=== PATIENT | male | born 1965 | race Caucasian/White ===

== ENCOUNTER 2019-04-26 19:43 | Emergency (ER) | payer MEDICAID ==
[~2019-04-26] VITALS: Ht 162.6 cm; Wt 93.0 kg
[2019-04-26 20:10] VITALS: BP 156/82
--- NOTE | 2019-04-26 20:12 | NUR ---
TO LOBBY A/W BED, AMBULATORY
--- NOTE | 2019-04-26 20:25 | NUR ---
PT AMBULATORY TO BED WITH
--- NOTE | 2019-04-26 20:30 | NUR ---
53/M BIB , C/O L TESTICULAR SWELLING AND PAIN. DENIES FEVER, N/V/D, CONSTIPATION, DYSURIA. L TESTICLE NOTED WITH MODERATE SWELLING, FIRM TO TOUCH, NO OBVIOUS REDNESS, TENDER TO TOUCH. PT AOX4, GCS 15, SKIN NORMAL WARM AND DRY, RR EVEN AND UNLABORED. HX DM, HTN, CHF, HIGH CHOLESTEROL
[2019-04-26] MEDS ORDERED: IBUPROFEN 800 MG TAB PO ONE (20:40)
[2019-04-26] MEDS ORDERED: AZITHROMYCIN 250 MG TAB PO ONE (22:00)
[2019-04-26] MEDS ORDERED: cefTRIAXone 250 MG in LIDOCAINE MPF 1% - 5 mL VIAL 0.9 ML IM ONE (22:00)
[2019-04-26 22:48] VITALS: BP 161/91
== END 2019-04-26 22:48 | disposition home or self-care (01) ==
LOC: MED 19:43
DX: N45.1 Epididymitis (principal); I50.9 Heart failure, unspecified
CPT/HCPCS: 76870; 81002; 96372; 99284; J0696; J2001; Q0092

== ENCOUNTER 2019-05-11 00:19 | Inpatient (IN) | payer MEDICAID ==
[~2019-05-11] VITALS: Ht 162.6 cm; Wt 96.2 kg
[2019-05-11 00:23] VITALS: BP 123/71
--- NOTE | 2019-05-11 00:31 | NUR ---
PT CAME INTO ER C/O RIGHT NONRADIATING FLANK PAIN AND LETHARGY X1 DAY. NO ACUTE DISTRESS, PAIN LEVEL 1/10 AT THIS TIME. DENIES N/V/D, CONSTIPATION, OR URINARY COMPLAINTS. MEDHX CHF, HTN, HYPERLIPIDEMIA, DIABETES. HOB ELEVATED, BED IN LOWEST POSITION, BEDRAIL UP X1. WAITING FOR ERMD TO EVALUATE. WILL CONTINUE TO MONITOR.
--- NOTE | 2019-05-11 00:31 | NUR ---
PT AMBULATED W/ STEADY GAIT TO BED 11.
[2019-05-11] MEDS ORDERED: NACL 0.9% 1,000 ML IV ONE ×4 (00:58→23:20)
[2019-05-11] MEDS ORDERED: KETOROLAC 30 MG/ML VIAL IVP ONE (01:00)
[2019-05-11 01:11] LABS: BASOPHILS # (AUTO) 0.2 K/uL (0.00-0.22); BASOPHILS % (AUTO) 0.8 % (0.0-2.0); EOSINOPHILS % (AUTO) 0.1 % (0.0-4.0); HEMATOCRIT 35.2 % (36-52); HEMOGLOBIN 12.2 g/dL (12.0-18.0); LYMPHOCYTES # (AUTO) 0.8 K/uL (2.0-11.5); MEAN CORPUSCULAR HEMOGLOBIN 31 pg (27-31); MEAN CORPUSCULAR HGB CONC 35 g/dL (33-37); MEAN CORPUSCULAR VOLUME 90.4 fL (80-94); MONOCYTES # (AUTO) 1.5 K/uL (0.8-1.0); MONOCYTES % (AUTO) 7.3 % (1.7-9.3); NEUTROPHILS # (AUTO) 18.3 K/uL (1.8-7.7); PLATELET COUNT (AUTO) 339 K/uL (140-450); RED BLOOD CELL COUNT(AUTO) 3.89 MIL/uL (4.20-6.10); RED CELL DISTRIBUTION WIDTH 12.4 % (11.6-13.7)
[2019-05-11 01:33] LABS: ALBUMIN 2.8 g/dL (3.4-5.0); ANION GAP 13.6 (8-16); ASPARTATE AMINOTRANSFERASE 15 U/L (15-37); CARBON DIOXIDE 25.3 mmol/L (21-32); CHLORIDE 99 mmol/L (98-107); CREATININE 1.3 mg/dL (0.7-1.3); GFR ARICAN-AMERICAN 75 mL/min (>90); GLUCOSE 176 mg/dL (74-106); LIPASE 77 U/L (73-393); SODIUM SERUM 135 mmol/L (136-145); TOTAL BILIRUBIN 0.8 mg/dL (0.0-1.0); UREA NITROGEN, BLOOD 15 mg/dL (7-18)
[2019-05-11 01:34] LABS: LYMPHOCYTES % (AUTO) 3.8 % (20.5-51.1); WHITE BLOOD COUNT (AUTO) 20.7 K/uL (4.8-10.8)
--- NOTE | 2019-05-11 01:34 | NUR ---
PT UNABLE TO GIVE URINE AT THIS TIME
[2019-05-11 01:39] LABS: POTASSIUM 2.9 mmol/L (3.5-5.1)
--- NOTE | 2019-05-11 02:00 | NUR ---
PT IN BED RESTING, EYES CLOSED. WILL CONTINUE TO MONITOR.
[2019-05-11 02:06] LABS: APPEARANCE,URINE SL CLOUDY (CLEAR); BILIRUBIN,URINE NEGATIVE (NEGATIVE); BLOOD, URINE 2+ (NEGATIVE); COLOR,URINE YELLOW (YELLOW); LEUKOCYTE ESTERASE ,URINE 2+ (NEGATIVE); NITRITE, URINE POSITIVE (NEGATIVE); UGLUCOSE NEGATIVE (NEGATIVE)
[2019-05-11 02:15] LABS: BARBITURATE, URINE NEG. ng/ml (NEG <=200); BENZODIAZEPINE, URINE NEG. ng/mL (NEG <=200); CANNABINOID, URINE NEG. ng/mL (NEG <=50); COCAINE, URINE NEG. ng/mL (NEG <=300); OPIATE, URINE NEG. ng/mL (NEG <=2000); PHENCYCLIDINE SCREEN,URINE NEG. ng/mL (NEG <=25)
[2019-05-11 02:23] LABS: RBC,URINE TOO NUMEROUS TO COUN /HPF (0-5); WBC,URINE TOO MANY TO COUNT /HPF (0-5)
[2019-05-11] MEDS ORDERED: cefTRIAXone 1,000 MG VIAL ONE (02:49)
--- NOTE | 2019-05-11 02:53 | NUR ---
PT CONTINUES TO FEEL TIRED. BP 97/44 HR 71. SECOND L OF NS STARTED. DR NAILS IS AWARE. WILL CONTINUE TO MONITOR.
--- NOTE | 2019-05-11 03:28 | NUR ---
PT RESTING IN BED. BP INCREASED TO 101/47, HR 71.
[2019-05-11] MEDS ORDERED: KCL 20 MEQ/WATER INJ PREMIX 100 ML IV ONE (03:30)
[2019-05-11] MEDS ORDERED: NACL 0.9% 1,000 ML IV SCH (03:44)
[2019-05-11] MEDS ORDERED: DOCUSATE SODIUM 100 MG GELCAP PO PRN (03:45)
[2019-05-11] MEDS ORDERED: MORPHINE SULFATE 2 MG/ML SYR IVP PRN (03:45)
[2019-05-11] MEDS ORDERED: KETOROLAC 15 MG/ML VIAL IVP PRN (03:45)
[2019-05-11] MEDS ORDERED: HYDROcodone/APAP 5/325 MG 1 TAB TAB PO PRN (03:45)
[2019-05-11] MEDS ORDERED: POTASSIUM CHLORIDE 10 MEQ TABER PO ONE (03:50)
[2019-05-11] MEDS ORDERED: DEXTROSE 50% 50 ML SYR IVP PRN (03:50)
[2019-05-11] MEDS ORDERED: KCL 20 MEQ/WATER INJ PREMIX 200 ML IV ONE (03:50)
[2019-05-11] MEDS ORDERED: LISI-420 PO (03:53)
[2019-05-11] MEDS ORDERED: TAMS0.4C97 PO (03:53)
[2019-05-11] MEDS ORDERED: ORE25 PO (03:54)
[2019-05-11] MEDS ORDERED: METF1000 PO (03:55)
[2019-05-11] MEDS ORDERED: ISOS20TA13 PO (03:56)
[2019-05-11] MEDS ORDERED: FURO-572 PO (03:57)
[2019-05-11] MEDS ORDERED: CARV25TA PO (03:58)
[2019-05-11] MEDS ORDERED: ASPI-1718 PO (03:59)
[2019-05-11] MEDS ORDERED: GLIM2TAB PO (03:59)
[2019-05-11] MEDS ORDERED: HYDR100T79 PO (04:00)
[2019-05-11] MEDS ORDERED: AMLO10TA PO (04:01)
[2019-05-11] MEDS ORDERED: CLON0.1T42 PO (04:02)
[2019-05-11 04:04] LABS: PROTHROMBIN TIME 10.2 secs (10.8-13.4)
[2019-05-11 04:16] LABS: CHOL/HDL RATIO 5.6 (1-4.5); FREE T4 (FREE THYROXINE) 1.34 ng/dL (0.76-1.46); MAGNESIUM 1.5 mg/dL (1.8-2.4); PHOSPHORUS 2.7 mg/dL (2.5-4.9); THYROID STIMULATING HORMONE 0.28 uIU/mL (0.34-3.74)
--- NOTE | 2019-05-11 04:31 | NUR ---
REPORT GIVEN AND CARE TRANSFERRED TO ZACK RN ROOM 124B. TRANSFER VIA RNEY. VSS.
[2019-05-11 05:00] VITALS: BP 117/71
--- NOTE | 2019-05-11 05:00 | NUR ---
RECEIVED PT FROM ER VIA DINAH PT AAOX4 AMBULATORY ON ARTILLERY MAINTENANCE SUPERVISOR SR HR 71, IV ON RT AC GAUGE # 20 INFUSING WELL K RIDDER, , SKIN IS INTACT, MRSA NARES SWAB PROTOCOL TAKEN AND SENT TO LAB, PT IS ORIENT ED TO THE FLOOR CALL LIGHT WITHIN REACH
[2019-05-11] MEDS: NACL 0.9% 1,000 ML IV SCH ×3 (05:50→22:06)
[2019-05-11] MEDS: BLOOD GLUCOSE MONITORING 1 DEV DEV FS SCH ×4 (05:59→21:48)
[2019-05-11] MEDS: PIPER/TAZO 3.375GM/D5W PREMIX 50 ML IV SCH ×4 (06:30→23:28)
--- NOTE | 2019-05-11 06:30 | NUR ---
BLOOD SUGAR TEST 161 COVERAGE WITH 2 UNITS SUBQ HUMALOG FOLLOW PROTOCOL
[2019-05-11] MEDS ORDERED: PIPERACILLIN/TAZOBACTAM 3.375 GM VIAL IV ONE (06:33)
--- NOTE | 2019-05-11 06:36 | NUR ---
PT WILL BE ENDORSED TO DAY SHIFT NURSE FOR CONTINUITY OF CARE .
--- NOTE | 2019-05-11 07:20 | NUR ---
RECEIVED PT FROM LIFE CYCLE ASSESSMENT ANALYST NURSE, PT IS AWAKE AND LYING ON THE BED WITH SIDE RAILS UP AND CALL LIGHT WITHIN REACH,IV LINE ON THE RT AC G. 20 WITH NS INFUSING AT 100ML/HR, DENIES PAIN AND NO SIGN OF DISTRESS NOTED. WILL MONITOR PT.
[2019-05-11 08:00] VITALS: BP 133/78
[2019-05-11] MEDS ORDERED: LISINOPRIL 20 MG TAB PO SCH (08:00)
[2019-05-11] MEDS ORDERED: TAMSULOSIN HCL 0.4 MG PO SCH (08:00)
[2019-05-11] MEDS ORDERED: ASPIRIN 81 MG TAB.CHEW PO SCH (08:00)
[2019-05-11] MEDS ORDERED: MAG SULF 2000 MG/WATER PREMIX 100 ML IV SCH (08:30)
[2019-05-11] MEDS: ACETAMINOPHEN 325 MG TAB PO PRN ×2 (08:49→17:59)
[2019-05-11] MEDS: GLIMEPIRIDE 2 MG TAB PO SCH ×2 (09:00→20:10)
[2019-05-11] MEDS ORDERED: metFORMIN 500 MG TAB PO SCH (09:00)
[2019-05-11] MEDS ORDERED: CARVEDILOL 12.5 MG TAB PO SCH (09:00)
[2019-05-11] MEDS ORDERED: KETOROLAC 15 MG/ML VIAL IVP SCH ×2 (09:00→18:20)
[2019-05-11] MEDS: NICOTINE TRANSD SYS 14 MG/24 HR PATCH TD SCH (09:00)
[2019-05-11] MEDS: ONDANSETRON 4 MG/2 ML VIAL IM/IVP PRN ×2 (09:08→18:33)
[2019-05-11] MEDS: cloNIDine 0.1 MG TAB PO SCH ×2 (09:09→20:10)
--- NOTE | 2019-05-11 09:09 | NUR ---
PT WERE GIVEN BP MEDS NOW PER MDR. FERGUSON, BP IS 186/90, PULSE IS 100 O2 SATURATION IS 96%, ZOFRAN WAS GIVEN WELL VIA IV MPUSH FOR THE NAUSEA. WILL MONITOR PT.
--- NOTE | 2019-05-11 09:22 | NUR ---
PATIENT HAS BEEN SCREENED AND CATEGORIZED HIGH NUTRITION RISK. PATIENT WILL BE SEEN WITHIN 1-2 DAYS OF ADMISSION. 05/11/19-05/12/[address]
--- NOTE | 2019-05-11 09:33 | NUR ---
MAGNESIUM SULFATE 2GM WAS STARTED TO PT NOW. PT RESTING. WILL MONITOR PT.
--- NOTE | 2019-05-11 11:40 | NUR ---
PT IS OFF THE UNIT NOW FOR A CT OS ABDOMEN AND PELVIS, TEMPERATURE IS 99.1.
[2019-05-11 12:00] VITALS: BP 108/63
--- NOTE | 2019-05-11 12:42 | NUR ---
PT WAS GIVEN IV ZOSYN IVPB NOW.
--- NOTE | 2019-05-11 12:43 | NUR ---
BLOOD GLUCOSE CHECK DONE AN RESULT MS124, NO INSULIN COVERAGE, VITAL SIGNS TAKEN AND BP IS 108/63, PULSE IS 79, O2 SATURATION IS 98%, TEMPERATURE IS 98.3 [address]TE. NO SIGN OF DISTRESS NOTED AND WILL MONITOR PT.
--- NOTE | 2019-05-11 15:19 | NUR ---
05/11/19 RD INITIAL ASSESSMENT COMPLETED PLEASE REFER TO NUTRITION ASSESSMENT UNDER CARE ACTIVITY FOR ESTIMATED NUTRITIONAL NEEDS. 1.CONTINUE CCHO 60 GR, CARDIAC DIET TOLERATED 2.RD TO FOLLOWU UP WITH DIABETES EDUCATION 3. RD TO FOLLOW-UP 2-3 DAYS, HIGH RISK ABBI JIMENEZ, RD
[2019-05-11 16:00] VITALS: BP 102/64
--- NOTE | 2019-05-11 16:30 | NUR ---
ECHO IS BEING DONE TO PT NOW.
[2019-05-11] MEDS: INSULIN LISPRO SLIDING SCALE 100 UNITS/ML VIAL SUBQ PRN ×2 (17:17→20:26)
--- NOTE | 2019-05-11 17:18 | NUR ---
PT IS AWAKE AND MEDICATIONS VIA IVPB AND 4 UNITS INSULIN WERE GIVEN TO PT NOW FOR A BLOOD GLUCOSE OF 212. WILL MONITOR PT.
--- NOTE | 2019-05-11 18:02 | NUR ---
PT IS SHIVERING AGAIN THERESA TEMPERATURE IS 100.4, TYLENOL WAS GIVEN. WILL ,MONITOR PT.
[2019-05-11 18:27] LABS: BASOPHILS % (AUTO) 0.2 % (0.0-2.0); HEMATOCRIT 39.8 % (36-52); HEMOGLOBIN 13.6 g/dL (12.0-18.0); LYMPHOCYTES # (AUTO) 0.6 K/uL (2.0-11.5); LYMPHOCYTES % (AUTO) 3.6 % (20.5-51.1); MEAN CORPUSCULAR HEMOGLOBIN 31 pg (27-31); MEAN CORPUSCULAR HGB CONC 34 g/dL (33-37); MEAN CORPUSCULAR VOLUME 92.1 fL (80-94); MONOCYTES # (AUTO) 0.2 K/uL (0.8-1.0); MONOCYTES % (AUTO) 1.1 % (1.7-9.3); NEUTROPHILS # (AUTO) 16.4 K/uL (1.8-7.7); NEUTROPHILS % (AUTO) 95.1 % (42.2-75.2); PLATELET COUNT (AUTO) 349 K/uL (140-450); RED BLOOD CELL COUNT(AUTO) 4.32 MIL/uL (4.20-6.10); RED CELL DISTRIBUTION WIDTH 12.7 % (11.6-13.7); WHITE BLOOD COUNT (AUTO) 17.2 K/uL (4.8-10.8)
[2019-05-11] MEDS ORDERED: KETOROLAC 60 MG/2 ML VIAL IM ONE (18:29)
--- NOTE | 2019-05-11 18:29 | NUR ---
PT WAS GIVEN TORADOL 30MG VIA IV PUSH.
--- NOTE | 2019-05-11 18:33 | NUR ---
PT IS NAUSEATED AND VOMITING, ZOFRAN WAS GIVEN VIA IV PUSH.
[2019-05-11 18:43] LABS: ANION GAP 14.3 (8-16); CARBON DIOXIDE 27.2 mmol/L (21-32); CREATININE 1.6 mg/dL (0.7-1.3); POTASSIUM 4.5 mmol/L (3.5-5.1)
--- NOTE | 2019-05-11 19:15 | NUR ---
ENDORSED PT TO FUNDRAISING MANAGER NURSE FOR CONTINUITY OF CARE, PT'S TEMPERATURE IS 99 DEGREES NOW.
--- NOTE | 2019-05-11 19:16 | NUR ---
RECEIVED REPORT FROM AM NURSE. PT SITTING UP IN BED, AWAKE, ALERT AND ORIENTED. PT AT BEDSIDE. PT CURRENTLY EATING. PT RIGHT A/C 20 G INTACT AND INFUSING WELL. NO C/O DISCOMFORT. PT ON 2 L 02 VIA N.C. BREATHING EQUAL AND UNLABORED. SAFETY MEASURES IN PLACE. CALL LIGHT WITHIN REACH. WILL CONTINUE TO MONITOR.
--- NOTE | 2019-05-11 19:40 | NUR ---
PT AMBULATING IN HALLWAYS WITH , STEADY GAIT.
--- NOTE | 2019-05-11 20:00 | NUR ---
VITALS TAKEN. PT CURRENT TEMPERATURE IS 97.3
[2019-05-11 20:02] VITALS: BP 121/64
[2019-05-11] MEDS: TAMSULOSIN 0.4 MG CAP PO SCH (20:09)
--- NOTE | 2019-05-11 21:40 | NUR ---
BP REASSESS AFTER BP MEDICATION. BP 91/48 AT THIS TIME. RESIDENT MD MADE AWARE. INSTRUCTED TO REASSESS BP.
--- NOTE | 2019-05-11 23:24 | NUR ---
VITALS TAKEN. PT BP 94/51. RESIDENT MD MADE AWARE. NO NEW ORDERS GIVEN.
[2019-05-12] MEDS ORDERED: KETOROLAC 15 MG/ML VIAL IVP SCH
[2019-05-12 00:03] VITALS: BP 94/51
[2019-05-12] MEDS: KETOROLAC 15 MG/ML VIAL IVP SCH ×2 (00:26→05:05)
--- NOTE | 2019-05-12 01:40 | NUR ---
ROUNDED ON PT. PT SLEEPING IN BED. BREATHING UNLABORED. CALL LIGHT WITHIN REACH. WILL CONTINUE TO MONITOR.
[2019-05-12] MEDS: ONDANSETRON 4 MG/2 ML VIAL IM/IVP PRN (02:30)
--- NOTE | 2019-05-12 02:30 | NUR ---
GAVE ZOFRAN FOR REPORTED NAUSEA.
--- NOTE | 2019-05-12 04:05 | NUR ---
ROUNDED ON PT. PT SLEEPING, NO VISIBLE SIGNS OF DISTRESS. CALL LIGHT WITHIN REACH.
[2019-05-12] MEDS: NACL 0.9% 1,000 ML IV SCH ×3 (04:13→18:31)
[2019-05-12 04:15] VITALS: BP 117/68
[2019-05-12] MEDS: PIPER/TAZO 3.375GM/D5W PREMIX 50 ML IV SCH ×3 (05:05→17:18)
[2019-05-12] MEDS: INSULIN LISPRO SLIDING SCALE 100 UNITS/ML VIAL SUBQ PRN ×2 (05:09→21:37)
[2019-05-12 06:01] LABS: ANION GAP 11.4 (8-16); CREATININE 1.2 mg/dL (0.7-1.3); POTASSIUM 3.4 mmol/L (3.5-5.1)
[2019-05-12 06:12] LABS: PHOSPHORUS 2.4 mg/dL (2.5-4.9)
[2019-05-12] MEDS: BLOOD GLUCOSE MONITORING 1 DEV DEV FS SCH ×4 (06:33→21:12)
--- NOTE | 2019-05-12 07:20 | NUR ---
ENDORSED PT TO AM NURSE. PT IN STABLE CONDITION AT THIS TIME.
--- NOTE | 2019-05-12 07:24 | NUR ---
RECEIVED BEDSIDE REPORT FROM SENIOR LABORATORY TECHNICIAN NURSE. PT LAYING IN BED, AAOX4. PT HAS RIGHT A/C 20G INTACT AND INFUSING WELL. NO C/O DISCOMFORT. PT ON RA. BREATHING PATTERN IS EQUAL AND UNLABORED. SAFETY MEASURES IN PLACE. DISCUSSED PLAN OF CARE WITH PT AND PT VERBALIZED UNDERSTANDING. CALL LIGHT WITHIN REACH. BED IN LOW POSITION. WILL ROUND FREQUENTLY ON PT.
[2019-05-12 07:41] LABS: BASOPHILS % (AUTO) 0.1 % (0.0-2.0); EOSINOPHILS % (AUTO) 0.3 % (0.0-4.0); HEMOGLOBIN 11.5 g/dL (12.0-18.0); LYMPHOCYTES # (AUTO) 0.5 K/uL (2.0-11.5); LYMPHOCYTES % (AUTO) 3.3 % (20.5-51.1); MEAN CORPUSCULAR HEMOGLOBIN 32 pg (27-31); MEAN CORPUSCULAR HGB CONC 35 g/dL (33-37); MEAN CORPUSCULAR VOLUME 91.9 fL (80-94); MONOCYTES # (AUTO) 0.7 K/uL (0.8-1.0); MONOCYTES % (AUTO) 4.8 % (1.7-9.3); NEUTROPHILS # (AUTO) 12.6 K/uL (1.8-7.7); NEUTROPHILS % (AUTO) 91.5 % (42.2-75.2); PLATELET COUNT (AUTO) 262 K/uL (140-450); RED CELL DISTRIBUTION WIDTH 12.7 % (11.6-13.7); WHITE BLOOD COUNT (AUTO) 13.7 K/uL (4.8-10.8)
[2019-05-12 08:00] VITALS: BP 114/63
[2019-05-12] MEDS: HYDROCHLOROTHIAZIDE 25 MG TAB PO SCH (08:00)
[2019-05-12] MEDS ORDERED: POTASSIUM CHLORIDE 10 MEQ TABER PO SCH (08:00)
[2019-05-12] MEDS: metFORMIN 500 MG TAB PO SCH ×2 (08:28→17:18)
[2019-05-12] MEDS: SODIUM PHOS / POTASSIUM PHOS 1 PKT PDR PO SCH (08:29)
[2019-05-12] MEDS: NICOTINE TRANSD SYS 14 MG/24 HR PATCH TD SCH (08:29)
[2019-05-12] MEDS: GLIMEPIRIDE 2 MG TAB PO SCH ×2 (09:00→21:11)
[2019-05-12] MEDS ORDERED: amLODIPine 5 MG TAB PO SCH (09:00)
--- NOTE | 2019-05-12 09:10 | NUR ---
ADMINISTERED MORNING MEDS TO PT. PT TOLERATED THEM WELL. ALL BP MEDS WERE HELD PER MD ORDERS DUE TO DECREASED BP. WILL MONITOR BP FREQUENTLY AND NOTIFY MD OF CHANGES. PT HAVING BREAKFAST AT THIS TIME. WILL CONTINUE TO ROUND FREQUENTLY ON PT. BED IN LOW POSITION, CALL LIGHT WITHIN REACH.
--- NOTE | 2019-05-12 11:24 | NUR ---
PT SLEEPING IN BED. NO SIGNS OF PAIN OR DISTRESS NOTED. WILL CONTINUE TO ROUND FREQUENTLY ON PT.
--- NOTE | 2019-05-12 11:57 | NUR ---
PER MD ORDERS, NO INSULIN COVERAGE TO BE GIVEN TO PT FOR 152 BS. WILL REASSESS BS AT 1600.
[2019-05-12 12:00] VITALS: BP 133/75
[2019-05-12] MEDS: KETOROLAC 15 MG/ML VIAL IVP PRN (12:44)
--- NOTE | 2019-05-12 13:14 | NUR ---
PT HAVING LATE LUNCH MEAL. PT HAD 100.2 FEVER. TORADOL WAS GIVEN FOR RELIEF OF CHILLS AND TO REDUCE FEVER. PT STATES MINOR HEADACHE. WILL REASSESS PT FOR MED EFFECTIVENESS. BED IN LOW POSITION, CALL LIGHT WITHIN REACH.
--- NOTE | 2019-05-12 15:24 | NUR ---
PT SLEEPING IN BED. PT EXPERIENCING FEVER. GAVE TYLENOL FOR RELIEF. WILL REASSESS FOR MED EFFECTIVENESS.
[2019-05-12 16:00] VITALS: BP 136/76
[2019-05-12] MEDS: ACETAMINOPHEN 325 MG TAB PO PRN (17:18)
--- NOTE | 2019-05-12 17:45 | NUR ---
PT RESTING IN BE WITH AT BEDSIDE. PT FEVER IS 99.5. WILL CONTINUE TO MONITOR PT.
--- NOTE | 2019-05-12 19:13 | NUR ---
ENDORSED PT TO SUPERVISOR FERTILIZER PROCESSING FOR CONTINUITY OF CARE. PT IN STABLE CONDITION AT THIS TIME.
--- NOTE | 2019-05-12 19:14 | NUR ---
RECEIVED REPORT FROM AM NURSE. PT AWAKE, ALERT AND ORIENTED. ABLE TO VERBALIZE NEEDS. PT RIGHT 20G INTACT AND INFUSING WELL. AT BEDSIDE. PT ON ROOM AIR, BREATHING EQUAL AND UNLABORED. SAFETY MEASURES IN PLACE. CALL LIGHT WITHIN REACH. PT UP AND AMBULATED TO THE BATHROOM, STEADY GAIT. WILL CONTINUE TO MONITOR.
[2019-05-12 20:00] VITALS: BP 136/74
--- NOTE | 2019-05-12 20:10 | NUR ---
PT USED CALL LIGHT TO SAY THAT HIS "IV IS LEAKING" UPON INSPECTION IV CANNULA APPEARS TO BE COMING OUT OF PT ARM. PT ASKED IF HE WAS ABLE TO SHOWER. PER DR BURNS, OKAY TO SHOWER. PT IV D/C AT THIS TIME, CANNULA INTACT. PT ASSISTED TO SHOWER BY .
[2019-05-12] MEDS: TAMSULOSIN 0.4 MG CAP PO SCH (21:11)
--- NOTE | 2019-05-12 21:11 | NUR ---
MEDICATIONS GIVEN TO PT. PT TOLERATED WELL. NEW IV STARTED ON LEFT FOREARM 20G FOR VASCULAR ACCESS.
[2019-05-13 00:05] VITALS: BP 98/62
[2019-05-13] MEDS: NACL 0.9% 1,000 ML IV SCH ×4 (00:15→23:07)
[2019-05-13] MEDS: KETOROLAC 15 MG/ML VIAL IVP PRN (00:15)
[2019-05-13] MEDS: PIPER/TAZO 3.375GM/D5W PREMIX 50 ML IV SCH ×3 (00:15→11:39)
--- NOTE | 2019-05-13 00:15 | NUR ---
VITALS TAKEN. PT STATED THAT HE IS "COLD" PT BROUGHT A BLANKET. PT ALSO ADMINISTERED TORADOL PER REQUEST.
[2019-05-13 04:01] VITALS: BP 169/81
[2019-05-13] MEDS: ACETAMINOPHEN 325 MG TAB PO PRN ×2 (04:01→12:21)
--- NOTE | 2019-05-13 04:01 | NUR ---
TYLENOL GIVEN FOR TEMP 101.2. PT BP 169/89 AT THIS TIME. RESIDENT AWARE. WILL REASSESS BP AND TEMPERATURE.
--- NOTE | 2019-05-13 04:40 | NUR ---
BP REASSESSED, 151/81 AT THIS TIME. RESIDENT MD MADE AWARE.
[2019-05-13 06:43] LABS: ANION GAP 15.3 (8-16); CARBON DIOXIDE 22.9 mmol/L (21-32); POTASSIUM 3.2 mmol/L (3.5-5.1)
[2019-05-13] MEDS: BLOOD GLUCOSE MONITORING 1 DEV DEV FS SCH ×4 (06:49→20:59)
[2019-05-13 06:50] LABS: MAGNESIUM 1.7 mg/dL (1.8-2.4); PHOSPHORUS 1.7 mg/dL (2.5-4.9)
[2019-05-13 07:25] LABS: BASOPHILS % (AUTO) 0.3 % (0.0-2.0); EOSINOPHILS % (AUTO) 0.4 % (0.0-4.0); HEMATOCRIT 34.4 % (36-52); HEMOGLOBIN 11.8 g/dL (12.0-18.0); LYMPHOCYTES # (AUTO) 0.6 K/uL (2.0-11.5); LYMPHOCYTES % (AUTO) 6.1 % (20.5-51.1); MEAN CORPUSCULAR HEMOGLOBIN 31 pg (27-31); MEAN CORPUSCULAR HGB CONC 34 g/dL (33-37); MEAN CORPUSCULAR VOLUME 91.2 fL (80-94); MONOCYTES # (AUTO) 0.9 K/uL (0.8-1.0); NEUTROPHILS # (AUTO) 8.4 K/uL (1.8-7.7); NEUTROPHILS % (AUTO) 84.2 % (42.2-75.2); PLATELET COUNT (AUTO) 253 K/uL (140-450); RED BLOOD CELL COUNT(AUTO) 3.77 MIL/uL (4.20-6.10); RED CELL DISTRIBUTION WIDTH 12.9 % (11.6-13.7)
--- NOTE | 2019-05-13 07:30 | NUR ---
RECEIVED BEDSIDE REPORT FROM NIGHT NURSE. PT AMBULATING TO BATHROOM WITH STEADY GAIT, AOX4. PT HAS NS AT 140ML/HR IV TO LEFT FOREARM THAT IS ASYMPTOMATIC AND PATENT. ALL SAFETY MEASURES IN PLACE WITH CALL LIGHT WITHIN REACH. PT BREATHING UNLABORED AND WITHOUT DISTRESS, PT HAS NO REQUESTS AT THIS TIME.
[2019-05-13 08:00] VITALS: BP 140/66
[2019-05-13] MEDS: GLIMEPIRIDE 2 MG TAB PO SCH ×2 (08:20→20:52)
[2019-05-13] MEDS: metFORMIN 500 MG TAB PO SCH ×2 (08:20→16:55)
[2019-05-13] MEDS: HYDROCHLOROTHIAZIDE 25 MG TAB PO SCH (08:20)
[2019-05-13] MEDS: SODIUM PHOS / POTASSIUM PHOS 1 PKT PDR PO SCH (08:21)
[2019-05-13] MEDS: NICOTINE TRANSD SYS 14 MG/24 HR PATCH TD SCH (08:33)
--- NOTE | 2019-05-13 10:49 | NUR ---
PT STANDING AT SINK WITH STEADY GAIT NO PROBLEMS AMBULATING. NO REQUESTS AND NO OBVIOUS SIGNS OF DISTRESS.
--- NOTE | 2019-05-13 11:36 | NUR ---
PT BG 89 PT WALKING AROUND FINE WITH STEADY GAIT NO DISTRESS.
--- NOTE | 2019-05-13 11:43 | NUR ---
INFORMED DR MARAVILLA OF PATIENT POTASSIUM AND MAGNESIUM LEVELS DECREASING ON TODAY'S LAB READING.
[2019-05-13 12:00] VITALS: BP 150/81
--- NOTE | 2019-05-13 12:21 | NUR ---
GAVE TYLENOL PRN FOR FEVER 101.4
--- NOTE | 2019-05-13 12:36 | NUR ---
ADMINISTERED MEDICATIONS, PT HAS NO OTHER REQUESTS AND NO DISTRESS.
--- NOTE | 2019-05-13 12:54 | NUR ---
PT FEVER REDUCED TO 100.1 STATES NO PAIN OR DISCOMFORT.
[2019-05-13] MEDS ORDERED: POTASSIUM PHOSPHATE 15 MM in NACL 0.9% 250 ML IV SCH (13:00)
--- NOTE | 2019-05-13 13:38 | NUR ---
PT DAUGHTER AT BEDSIDE, STATING PT SAYS HE IS FEELING WARM. TEMPERATURE 100.1, BROUGHT PATIENT ICE WATER AND TOWEL AND HELPED WITH COOLING MEASURES FOR PUTTING ON HEAD AND UNDER ARMS. NO SIGNS OF DISTRESS BREATHING UNLABORED.
--- NOTE | 2019-05-13 14:08 | NUR ---
PT TEMPERATURE 99.9 TRENDING DOWN.
--- NOTE | 2019-05-13 14:15 | NUR ---
PT COMPLAINING OF BURNING PAIN IN STOMACH, INFORMED DR MARAVILLA WHO WENT AND SPOKE TO PT. NO FURTHER ORDERS AT THIS TIME.
[2019-05-13] MEDS ORDERED: MAGNESIUM OXIDE 400 MG TAB PO SCH (15:00)
[2019-05-13] MEDS ORDERED: KETOROLAC 15 MG/ML VIAL IVP SCH (15:12)
--- NOTE | 2019-05-13 15:20 | NUR ---
PT DAUGHTER REPORTED TO ME THAT PATIENT IS TELLING HER THAT HE HAD 7 BOWEL MOVEMENTS LOOSE TODAY. SPOKE TO DR MARAVILLA WHO SPOKE TO HIM WELL AND INFORMED ME HE WILL ORDER A STOOL SAMPLE TO BE COLLECTED.
--- NOTE | 2019-05-13 15:36 | NUR ---
WAS CONTACTED BY LAB REGARDING PT POSITIVE RESULTS URINE FOR E. COLI AND MDRO. DR. MARAVILLA WAS NEXT TO ME DURING PHONE CALL AND TOLD HIM DIRECTLY AT THAT SAME TIME. HE INFORMED ME HE WAS AWARE.
--- NOTE | 2019-05-13 15:52 | NUR ---
SPOKE TO DR MARAVILLA REGARDING PT FEVER 101.0 HE INFORMED ME TO CONTINUE WITH THE SCHEDULED TYLENOL Q6H AND THE TORADOL WELL.
[2019-05-13 16:00] VITALS: BP 148/79
--- NOTE | 2019-05-13 16:28 | NUR ---
FINGERSTICK GLUCOSE 62 PT IS EATING HIS LUNCH NOW. GAVE PT APPLE JUICE WILL CONTINUE TO MONITOR. AND REASSESS BLOOD GLUCOSE. PT IS AT BEDSIDE. PT IS SITTING UP IN CHAIR EATING.
--- NOTE | 2019-05-13 17:03 | NUR ---
PT SITTING UP IN CHAIR AT BEDSIDE STATES THAT HE FEELS MUCH BETTER AND HAS NO PAIN. PT AT BEDSIDE. PT HAS NO OBVIOUS DISTRESS BREATHING UNLABORED.
--- NOTE | 2019-05-13 17:30 | NUR ---
PT INFORMED ME HE HAD A BOWEL MOVEMENT. SENT SAMPLE WITH C DIFF PAPER SIGNED BY CHARGE TO LAB. PT RESTING BY BED WITH PRESENT WITH NO COMPLAINTS STATING HE FEELS BETTER AND DOES NOT FEEL LIKE HE HAS A FEVER OR CHILLS AND IS COMFORTABLE.
--- NOTE | 2019-05-13 18:26 | NUR ---
PT AT BEDSIDE PT IN BATHROOM. BROUGHT SOME ICE FOR PT THEY HAVE NO OTHER REQUESTS.
--- NOTE | 2019-05-13 18:39 | NUR ---
PT TEMPERATURE 98.1 CONTINUES TO TREND DOWN AND IS WNL
--- NOTE | 2019-05-13 19:14 | NUR ---
RECIEVED PT. AWAKE ON BED, NID , WITH EPISODE OF 4X LOOSE STOOL , AND ONE EPISODE OF FEVER , IV SITE INTACT AND PATENT, AMBULATORY , PLAN OF CARE DISCUSSED AND VERBALIZE OF UNDERSTANDING. RELATIVE AT BEDSIDE , CALL LIGHT WITHIN REACH , BED IN LOW POSITION , SIDERAILS UP X2 ,WILL CONTINUE TO MONITOR.
--- NOTE | 2019-05-13 19:14 | NUR ---
GAVE BEDSIDE REPORT PT IN STABLE CONDITION.
[2019-05-13 20:00] VITALS: BP 112/65
[2019-05-13] MEDS ORDERED: cefTRIAXone 1,000 MG VIAL ONE (20:29)
[2019-05-13] MEDS: TAMSULOSIN 0.4 MG CAP PO SCH (20:40)
--- NOTE | 2019-05-13 22:00 | NUR ---
PUT ON CONTACT PRECAUTION ,POSITIVE STOOL C .DIFF. ,PROPER HANDWASHING RE EMPHASIZED , CALL LIGHT WITHIN REACH. WILL CONTINUE TO MONITOR.
[2019-05-13] MEDS: metroNIDAZOLE 500 MG/NS PREMIX 100 ML IV SCH (22:13)
[2019-05-14] VITALS: BP 113/65
--- NOTE | 2019-05-14 | NUR ---
MADE ROUNDS , V/S WNL ,NID , VOIDED FREELY , PASSED OUT SMALL LIQ, STOOL IN SMALL AMOUNT , WILL CONTINUE TO MONITOR.,CALL LIGHT WITHIN REACH .
[2019-05-14] MEDS: ONDANSETRON 4 MG/2 ML VIAL IM/IVP PRN ×2 (00:27→21:04)
[2019-05-14] MEDS: KETOROLAC 15 MG/ML VIAL IVP SCH ×4 (00:28→17:31)
--- NOTE | 2019-05-14 02:00 | NUR ---
MADE ROUNDS , SLEEPING ,NID ,CALL LIGHT WITHIN REACH.
[2019-05-14] MEDS: NACL 0.9% 1,000 ML IV SCH ×3 (03:17→20:34)
[2019-05-14 04:00] VITALS: BP 114/69
--- NOTE | 2019-05-14 04:00 | NUR ---
MADE ROUNDS , V/S WNL , VOIDED FREELY , PASSED OUT SMALL AMOUNT OF LIQUID STOOL , ENCOURAGED OFI , CALL LIGHT WITHIN REACH , WILL CONTINUE TO MONITOR.
[2019-05-14] MEDS: metroNIDAZOLE 500 MG/NS PREMIX 100 ML IV SCH ×3 (05:20→20:59)
--- NOTE | 2019-05-14 06:00 | NUR ---
MADE ROUNDS , NID ,SLEEPING ,CALL LIGHT WITHIN REACH.
[2019-05-14] MEDS: BLOOD GLUCOSE MONITORING 1 DEV DEV FS SCH ×4 (06:42→21:21)
[2019-05-14 06:54] LABS: ANION GAP 15.1 (8-16); CARBON DIOXIDE 23.2 mmol/L (21-32); CREATININE 0.7 mg/dL (0.7-1.3); POTASSIUM 3.3 mmol/L (3.5-5.1)
[2019-05-14 07:04] LABS: MAGNESIUM 1.6 mg/dL (1.8-2.4); PHOSPHORUS 2.6 mg/dL (2.5-4.9)
--- NOTE | 2019-05-14 07:20 | NUR ---
RECEIVED BEDSIDE REPORT FROM NIGHT NURSE. ASKED IF SHE HAD ADMINISTERED KETOROLAC [id number] THEY HAVE NOT BEEN ADMINISTERED ACCORDING TO EMAR AND SHE INFORMED ME SHE HAD WELL ALL THE NIGHT INTERVENTIONS COMPLETED. PATIENT IS ON C DIFF CONTACT PRECAUTIONS ACCORDING TO NIGHT NURSE BECAUSE C DIFF STOOL SAMPLE CAME BACK POSITIVE. PT IS AOX4. PT HAS LEFT FOREARM IV THAT IS INFUSING NORMAL SALINE AT 140ML/HR. PT DENIES CHILLS OR DISCOMFORT OF ANY KIND. ALL SAFETY MEASURES IN PLACE AND CALL LIGHT WITHIN REACH.
--- NOTE | 2019-05-14 07:20 | NUR ---
PT VOIDED FREELY ,NID ,PASSED OUT SMALL AMOUNT OF YELLOWISH LIQUID STOOL .ENDORSED TO AM SHIFT FOR CONTINUITY OF CARE.
[2019-05-14 08:00] VITALS: BP 131/44
[2019-05-14 08:01] LABS: BASOPHILS % (AUTO) 0.3 % (0.0-2.0); EOSINOPHILS % (AUTO) 0.3 % (0.0-4.0); HEMATOCRIT 34.5 % (36-52); HEMOGLOBIN 12.1 g/dL (12.0-18.0); LYMPHOCYTES # (AUTO) 1.1 K/uL (2.0-11.5); LYMPHOCYTES % (AUTO) 12.5 % (20.5-51.1); MEAN CORPUSCULAR HEMOGLOBIN 32 pg (27-31); MEAN CORPUSCULAR HGB CONC 35 g/dL (33-37); MEAN CORPUSCULAR VOLUME 89.7 fL (80-94); MONOCYTES # (AUTO) 1.1 K/uL (0.8-1.0); MONOCYTES % (AUTO) 12.5 % (1.7-9.3); NEUTROPHILS # (AUTO) 6.5 K/uL (1.8-7.7); NEUTROPHILS % (AUTO) 74.4 % (42.2-75.2); PLATELET COUNT (AUTO) 241 K/uL (140-450); RED BLOOD CELL COUNT(AUTO) 3.85 MIL/uL (4.20-6.10); RED CELL DISTRIBUTION WIDTH 13.1 % (11.6-13.7); WHITE BLOOD COUNT (AUTO) 8.7 K/uL (4.8-10.8)
[2019-05-14] MEDS: HYDROCHLOROTHIAZIDE 25 MG TAB PO SCH (08:11)
[2019-05-14] MEDS: metFORMIN 500 MG TAB PO SCH ×2 (08:11→17:31)
[2019-05-14] MEDS: SODIUM PHOS / POTASSIUM PHOS 1 PKT PDR PO SCH (08:11)
[2019-05-14] MEDS: GLIMEPIRIDE 2 MG TAB PO SCH ×2 (08:11→21:00)
[2019-05-14] MEDS: NICOTINE TRANSD SYS 14 MG/24 HR PATCH TD SCH (08:12)
--- NOTE | 2019-05-14 08:19 | NUR ---
ADMINISTERED MEDICATIONS REVIEWED INDICATIONS WITH PT. PT HAS NO QUESTIONS AND NO OBVIOUS DISTRESS. HE IS SITTING AT BEDSIDE IN HIS CHAIR BREATHING UNLABORED SMILING AND WITH A POSITIVE AFFECT.
--- NOTE | 2019-05-14 09:36 | NUR ---
PT RESTING BY BEDSIDE IN CHAIR WITH TWO VISITORS AT BEDSIDE. PT AND VISITORS DENY ANY REQUESTS FOR ANYTHING.
--- NOTE | 2019-05-14 10:55 | NUR ---
PT SLEEPING IN BED BREATHING UNLABORED
--- NOTE | 2019-05-14 11:52 | NUR ---
PT RESTING IN BED NO COMPLAINTS OR REQUESTS BREATHING UNLABORED.
[2019-05-14 12:00] VITALS: BP 126/53
--- NOTE | 2019-05-14 13:07 | NUR ---
PT IS SITTING BY BEDSIDE WITH NO OBVIOUS DISTRESS BREATHING UNLABORED
--- NOTE | 2019-05-14 13:10 | NUR ---
INFORMED DR MARAVILLA OF MAGNESIUM LEVEL 1.6 TRENDING DOWN FROM 1.7 YESTERDAY AND ALSO INFORMED OF POTASSIUM AT 3.3 TRENDING UP FROM 3.2 YESTERDAY.
--- NOTE | 2019-05-14 13:57 | NUR ---
ADMINISTERED MEDICATIONS AND ALSO BROUGHT PT WASH BASIN AND SUPPLIES FOR BATHING AND TOWELS PER HIS REQUEST SO HE CAN WASH HIMSELF.
[2019-05-14] MEDS ORDERED: POTASSIUM CHLORIDE 10 MEQ TABER PO SCH (14:00)
[2019-05-14] MEDS ORDERED: MAGNESIUM OXIDE 400 MG TAB PO SCH (14:00)
--- NOTE | 2019-05-14 15:04 | NUR ---
05/14/19 RD FOLLOW UP COMPLETED PLEASE REFER TO NUTRITION PROGRESS NOTE UNDER CARE ACTIVITY FOR ESTIMATED NUTRITION NEEDS. RD RECOMMENDATIONS: 1. RECOMMEND CONTINUE 60G CCHO MECHANICAL SOFT DIET TOLERATED BY PT 2. F/U 2-3 DAYS; HIGH RISK KEHINDE LUIS MBA, RD
--- NOTE | 2019-05-14 15:58 | NUR ---
PT SITTING AT BEDSIDE BREATHING UNLABORED AND NO SIGNS OF DISTRESS. PT ALSO AT BEDSIDE, INFORMED HER OF PT CONTACT PRECAUTIONS AND RESULTS OF STOOL SAMPLE INDICATING C DIFF POSITIVE AND RISKS OF NOT WEARING GLOVES OR GOWNS IN CONTACT WITH PATIENT. PT HAS NO REQUESTS STATING RIGHT NOW HE IS GOING TO CLEAN HIMSELF UP WITH THE SUPPLIES I BROUGHT SOON.
[2019-05-14 16:00] VITALS: BP 147/83
--- NOTE | 2019-05-14 17:12 | NUR ---
PT RESTING IN BED NO OBVIOUS DISTRESS.
--- NOTE | 2019-05-14 18:37 | NUR ---
EXPLAINED TO PT C DIFF BACTERIA PT RESTING IN BED NO OTHER REQUESTS NO DISTRESS.
--- NOTE | 2019-05-14 19:23 | NUR ---
GAVE BEDSIDE REPORT TO NIGHT NURSE PT IN STABLE CONDITION
--- NOTE | 2019-05-14 19:38 | NUR ---
Received endorsement from AM shift RN; patient A/Ox4, able to make needs known, Indonesian speaking, ambulatory. Patient is talking with ; introduced self, updated board. No SOB or distress noted, on room air. Iv site on left forearm, 20 gauge, intact, running IVF at 140mL/hr. Skin intact. On contact precautions for E-coli and MDRO urine and C.diff; contact precautions observed and maintained. Bed in the lowest position, call light within reach. Initial assessment done. Will continue to monitor.
[2019-05-14 20:00] VITALS: BP 153/93
--- NOTE | 2019-05-14 20:25 | NUR ---
Vitals taken, no distress noted.
[2019-05-14] MEDS: TAMSULOSIN 0.4 MG CAP PO SCH (21:00)
--- NOTE | 2019-05-14 21:55 | NUR ---
Due meds given, tolerated well.
--- NOTE | 2019-05-14 23:40 | NUR ---
Vitals taken, no distress noted. Patient asleep, eyes closed, visible chest rise and fall noted.
[2019-05-15] VITALS: BP 122/47
--- NOTE | 2019-05-15 01:29 | NUR ---
Rounds done; patient sleeping on right lateral side; visible chest rise and fall noted.
[2019-05-15] MEDS: NACL 0.9% 1,000 ML IV SCH ×3 (03:00→18:34)
--- NOTE | 2019-05-15 03:59 | NUR ---
Vitals taken, no distress noted. Patient awake, watching TV.
[2019-05-15 04:00] VITALS: BP 157/78
[2019-05-15] MEDS: metroNIDAZOLE 500 MG/NS PREMIX 100 ML IV SCH ×3 (04:12→20:56)
[2019-05-15] MEDS: KETOROLAC 15 MG/ML VIAL IVP SCH ×4 (05:02→18:00)
--- NOTE | 2019-05-15 05:30 | NUR ---
Checks made; no distress noted. Patient sleeping on left lateral side, visible chest rise and fall noted.
[2019-05-15] MEDS: BLOOD GLUCOSE MONITORING 1 DEV DEV FS SCH ×4 (06:09→21:37)
[2019-05-15 06:18] LABS: ANION GAP 14.5 (8-16); CARBON DIOXIDE 23.1 mmol/L (21-32); CREATININE 0.8 mg/dL (0.7-1.3); POTASSIUM 3.6 mmol/L (3.5-5.1)
[2019-05-15 06:27] LABS: MAGNESIUM 1.6 mg/dL (1.8-2.4); PHOSPHORUS 3.3 mg/dL (2.5-4.9)
[2019-05-15 06:40] LABS: BASOPHILS % (AUTO) 0.4 % (0.0-2.0); EOSINOPHILS % (AUTO) 0.2 % (0.0-4.0); HEMATOCRIT 35.8 % (36-52); HEMOGLOBIN 12.4 g/dL (12.0-18.0); LYMPHOCYTES # (AUTO) 1.2 K/uL (2.0-11.5); MEAN CORPUSCULAR HEMOGLOBIN 31 pg (27-31); MEAN CORPUSCULAR HGB CONC 35 g/dL (33-37); MEAN CORPUSCULAR VOLUME 89.5 fL (80-94); MONOCYTES # (AUTO) 1.4 K/uL (0.8-1.0); NEUTROPHILS # (AUTO) 8.9 K/uL (1.8-7.7); NEUTROPHILS % (AUTO) 77.4 % (42.2-75.2); PLATELET COUNT (AUTO) 248 K/uL (140-450); RED BLOOD CELL COUNT(AUTO) 4.01 MIL/uL (4.20-6.10); RED CELL DISTRIBUTION WIDTH 13.1 % (11.6-13.7); WHITE BLOOD COUNT (AUTO) 11.5 K/uL (4.8-10.8)
--- NOTE | 2019-05-15 07:14 | NUR ---
Endorsed patient to AM shift RN for continuity of care; patient in stable condition.
--- NOTE | 2019-05-15 07:15 | NUR ---
RECEIVED REPORT FROM CODE NUMBER STAMPER NURSE CALLIE FOR CONTINUITY OF CARE. PT IN STABLE CONDITION. RESPIRATIONS EVEN AND UNLABORED, ROOM AIR. IV INTACT AND PATENT. SAFETY MEASURES IN PLACE. CALL LIGHT AT BEDSIDE. BED IN LOW POSITION. WILL CONTINUE TO MONITOR.
[2019-05-15 08:00] VITALS: BP 160/91
[2019-05-15] MEDS: metFORMIN 500 MG TAB PO SCH ×2 (09:07→17:00)
[2019-05-15] MEDS: GLIMEPIRIDE 2 MG TAB PO SCH ×2 (09:08→20:19)
[2019-05-15] MEDS: HYDROCHLOROTHIAZIDE 25 MG TAB PO SCH (09:08)
[2019-05-15] MEDS: NICOTINE TRANSD SYS 14 MG/24 HR PATCH TD SCH (09:08)
[2019-05-15] MEDS: SODIUM PHOS / POTASSIUM PHOS 1 PKT PDR PO SCH (09:09)
--- NOTE | 2019-05-15 09:10 | NUR ---
GAVE ORDERED DUE MEDICATIONS AT THIS TIME. PT TOLERATED WELL. WILL CONTINUE TO MONITOR. BED IN LOW POSITION. CALL LIGHT AT BEDSIDE.
--- NOTE | 2019-05-15 10:05 | NUR ---
HIWOT LAKHANI DR. AND Víctor CRAWFORD.
[2019-05-15] MEDS ORDERED: POTA10TE30 PO (11:47)
[2019-05-15 12:00] VITALS: BP 143/62
[2019-05-15] MEDS ORDERED: VANCOMYCIN 1,000 MG VIAL GT SCH (12:00)
--- NOTE | 2019-05-15 13:34 | NUR ---
GAVE ORDERED DUE MEDICATIONS AT THIS TIME. PT TOLERATED WELL. GAVE ICE WATER PER PT REQUEST. WILL CONTINUE TO MONITOR. BED IN LOW POSITION. CALL LIGHT AT BEDSIDE.
--- NOTE | 2019-05-15 14:01 | NUR ---
S.T. BEDSIDE SWALLOW EVAL COMPLETED Please see report for details. Pt presents with adequate oropharyngeal swallow function. No overt s/s aspiration observed across all textures. Pt is able to self-feed w/o difficulty. Recommend: 1) Continue P.O. diet as tolerated. 2) P.O. meds as tolerated No further tx indicated at this time. DC to [facility]. D/w GAL Guillen. Time [id number]
--- NOTE | 2019-05-15 15:55 | NUR ---
PT LYING IN BED SLEEPING AT THIS TIME. RESPIRATIONS EVEN AND UNLABORED. BED IN LOW POSITION. CALL LIGHT AT BEDSIDE. WILL CONTINUE TO MONITOR.
[2019-05-15 16:00] VITALS: BP 140/61
--- NOTE | 2019-05-15 16:23 | NUR ---
PT TALKING WITH AT BEDSIDE. RESPIRATIONS EVEN AND UNLABORED. BED IN LOW POSITION. CALL LIGHT AT BEDSIDE. WILL CONTINUE TO MONITOR.
[2019-05-15] MEDS ORDERED: BOWEL EVACUANT DRINK 4,000 ML PDS PO ONE (19:15)
[2019-05-15] MEDS ORDERED: MAGNESIUM CITRATE 300 ML BTL PO ONE (19:15)
[2019-05-15] MEDS ORDERED: METOCLOPRAMIDE 10 MG/2 ML INJ VIAL IVP ONE (19:15)
--- NOTE | 2019-05-15 19:23 | NUR ---
RECIEVED PT AAOX4 ,V/S WNL ,AMBULATORY , DENIES PAIN AT THIS TIME , IV SITE DRY AND INTACT,PLAN OF CARE DISCUSSED AND VERBALIZE UNDERSTANDING ,RELATIVE AT BEDSIDE ,BED IN LOW POSITION ,SIDERAILS UPX2 ,CALL LIGHT WITHIN REACH ,NPO POST MIDNIGHT INSTRUCTED.WILL CONTINUE TO MONITOR.
--- NOTE | 2019-05-15 19:23 | NUR ---
WILL ENDORSE TO BUSINESS TRANSFORMATION ANALYST NURSE FOR CONTINUITY OF CARE. PT IN STABLE CONDITION
[2019-05-15 20:00] VITALS: BP 160/86
[2019-05-15] MEDS ORDERED: cefTRIAXone 1,000 MG VIAL ONE (20:10)
[2019-05-15] MEDS: TAMSULOSIN 0.4 MG CAP PO SCH (20:18)
--- NOTE | 2019-05-15 20:55 | NUR ---
[facility] GIVEN OREDERED .FOR POSSIBLE EGD COLONOSCOPY TODAY - NO CONSENT YET - NO SCHEDULE YEY ,WILL CONTINUE TO MONITOR , CALL LIGHT WITHIN REACH.
[2019-05-15] MEDS ORDERED: MAGNESIUM CITRATE 300 ML BTL PO SCH (21:30)
--- NOTE | 2019-05-15 21:36 | NUR ---
[facility] GIVEN P.O ORDERED FOR GALL BLADDER US CHESTER. OREDERED.
--- NOTE | 2019-05-15 22:00 | NUR ---
MADE ROUNDS ,NO COMPLAIN MADE AT THIS TIME. CALL LIGHT WITHIN REACH.
[2019-05-16] VITALS: BP 158/86
--- NOTE | 2019-05-16 | NUR ---
MADE ROUNDS , WNL ,NID DENIES ANY PAIN - DUE TORADOL -NOT GIVEN. CALL LIGHT WITHIN REACH ,WILL CONTINUE TO MONITOR
[2019-05-16] MEDS: KETOROLAC 15 MG/ML VIAL IVP SCH (00:33)
[2019-05-16] MEDS ORDERED: DEXT 5% /NACL 0.9% 1,000 ML IV SCH (00:55)
--- NOTE | 2019-05-16 02:00 | NUR ---
PT WENT TO BATHROOM ,PASSED OUT BM IN MODERATE AMOUNT SEMI SOLID.WILL CONTINUE T0, CALL LIGHT WITHIN REACH .WILL CONTINUE TO FOLLOW UP.
[2019-05-16 04:00] VITALS: BP 152/90
--- NOTE | 2019-05-16 04:00 | NUR ---
MADE ROUNDS ,PT HAD BM MODERATE AMOUNT WATERY IN CONSISTENCY ,V/S WNL ,NID WILL CONTINUE TO MONITOR ,CALL LIGHT WITH IN REACH.
[2019-05-16 05:47] LABS: ANION GAP 13.4 (8-16); CARBON DIOXIDE 25.8 mmol/L (21-32); CREATININE 0.8 mg/dL (0.7-1.3); POTASSIUM 3.2 mmol/L (3.5-5.1)
[2019-05-16 05:55] LABS: MAGNESIUM 1.8 mg/dL (1.8-2.4); PHOSPHORUS 3.4 mg/dL (2.5-4.9)
--- NOTE | 2019-05-16 06:00 | NUR ---
MADE ROUNDS PT. HAD BM , MODERATE AMOUNT IN LIQ. CONSISTENCY .NO FURTHER COMPLAIN MADE . DUE TORADOL NOT GIVEN.WILL CONTINUE TO MONITOR
[2019-05-16] MEDS: BLOOD GLUCOSE MONITORING 1 DEV DEV FS SCH ×3 (06:16→16:36)
[2019-05-16 06:19] LABS: BASOPHILS % (AUTO) 0.2 % (0.0-2.0); EOSINOPHILS # (AUTO) 0.1 K/uL (0-0.4); EOSINOPHILS % (AUTO) 0.8 % (0.0-4.0); HEMATOCRIT 33.8 % (36-52); HEMOGLOBIN 11.7 g/dL (12.0-18.0); LYMPHOCYTES # (AUTO) 1.7 K/uL (2.0-11.5); LYMPHOCYTES % (AUTO) 15.3 % (20.5-51.1); MEAN CORPUSCULAR HEMOGLOBIN 31 pg (27-31); MEAN CORPUSCULAR HGB CONC 35 g/dL (33-37); MEAN CORPUSCULAR VOLUME 90.2 fL (80-94); MONOCYTES # (AUTO) 1.5 K/uL (0.8-1.0); MONOCYTES % (AUTO) 13.3 % (1.7-9.3); NEUTROPHILS # (AUTO) 7.8 K/uL (1.8-7.7); NEUTROPHILS % (AUTO) 70.4 % (42.2-75.2); PLATELET COUNT (AUTO) 288 K/uL (140-450); RED BLOOD CELL COUNT(AUTO) 3.75 MIL/uL (4.20-6.10); RED CELL DISTRIBUTION WIDTH 13.1 % (11.6-13.7); WHITE BLOOD COUNT (AUTO) 11.1 K/uL (4.8-10.8)
[2019-05-16] MEDS: metroNIDAZOLE 500 MG/NS PREMIX 100 ML IV SCH (06:22)
--- NOTE | 2019-05-16 07:25 | NUR ---
ENDORSED TO AM SHIFT NURSE FOR CONTINUITY OF CARE.
--- NOTE | 2019-05-16 07:25 | NUR ---
RECEIVED REPORT FROM METAL ORGAN PIPE MAKER RNSERGIO . PATIENT RESTING IN BED, CLEAR SPEECH, NO SIGNS OF DISTRESS ON RA. SAFETY PRECAUTIONS IN PLACE, NO C/O PAIN AT THIS TIME, CALL LIGHT IN REACH. PATIENT AMBULATED TO THE BATHROOM, STEADY GAIT.
[2019-05-16 08:00] VITALS: BP 168/84
[2019-05-16] MEDS ORDERED: POTASSIUM CHLORIDE 40 MEQ, LIDOCAINE 1% 25 MG in NACL 0.9% 250 ML IV SCH (09:00)
[2019-05-16] MEDS ORDERED: SENNA 8.6 MG TAB PO SCH (09:00)
--- NOTE | 2019-05-16 09:34 | NUR ---
ADMINISTERED SCHEDULED MEDICATIONS. PATIENT TOLERATED WELL. NO SIGNS OF DISTRESS ON RA.
[2019-05-16] MEDS: HYDROCHLOROTHIAZIDE 25 MG TAB PO SCH (09:38)
[2019-05-16] MEDS: GLIMEPIRIDE 2 MG TAB PO SCH (09:38)
[2019-05-16] MEDS: metFORMIN 500 MG TAB PO SCH ×2 (09:38→16:36)
[2019-05-16] MEDS: SODIUM PHOS / POTASSIUM PHOS 1 PKT PDR PO SCH (09:39)
[2019-05-16] MEDS: NICOTINE TRANSD SYS 14 MG/24 HR PATCH TD SCH (09:40)
[2019-05-16] MEDS ORDERED: METF850T PO (10:35)
--- NOTE | 2019-05-16 11:00 | NUR ---
PATIENT OFF FLOOR TO OR FOR COLONOSCOPY AND EGD. GAVE REPORT TO GAME MASTER. PATIENT IN STABLE CONDITION.
[2019-05-16] MEDS ORDERED: fentaNYL 0.05 MG/ML VIAL ONE (11:06)
[2019-05-16] MEDS ORDERED: MIDAZOLAM 2 MG/2 ML VIAL ONE (11:06)
[2019-05-16] MEDS ORDERED: diphenhydrAMINE 50 MG/ML VIAL ONE (11:06)
[2019-05-16] MEDS: MIDAZOLAM 2 MG/2 ML VIAL IVP SCH ×2 (11:26→12:30)
[2019-05-16] MEDS: fentaNYL 0.05 MG/ML VIAL IVP SCH ×2 (11:27→12:30)
[2019-05-16] MEDS: GLUCAGON 1 MG VIAL IVP SCH ×2 (11:36→12:30)
[2019-05-16] MEDS ORDERED: GLUCAGON 1 MG VIAL ONE ×2 (12:57→14:40)
--- NOTE | 2019-05-16 14:15 | NUR ---
PATIENT BACK FROM PROCEDURE, ALERT AND ORIENTED. NO C/O PAIN, VITALS STABLE. SAFETY PRECAUTIONS IN PLACE. IV INFUSING WELL TO LEFT FOREARM. CALL LIGHT IN REACH.
[2019-05-16 16:00] VITALS: BP 159/87
[2019-05-16] MEDS ORDERED: PANTOPRAZOLE 40 MG TABEC PO SCH (16:30)
[2019-05-16] MEDS ORDERED: LEVO750T2 PO (16:37)
[2019-05-16] MEDS ORDERED: ASCO1CAP75 PO (16:37)
[2019-05-16] MEDS ORDERED: METR250T2 PO (16:37)
--- NOTE | 2019-05-16 16:45 | NUR ---
PATIENT VITALS STABLE. BLOOD GLUCOSE 166 BUT PATIENT RECENT ATE A SANDWICH. WILL ADMIN SCHEDULED METFORMIN BUT HOLD HUMALOG.
--- NOTE | 2019-05-16 18:15 | NUR ---
PATIENT RESTING, FAMILY AT BEDSIDE. NO SIGNS OF DISTRESS.
[2019-05-16 18:24] VITALS: BP 159/87
--- NOTE | 2019-05-16 19:10 | NUR ---
DISCHARGED PATIENT HOME, EDUCATED PATIENT REGARDING FOLLOW UP APPOINTMENTS, NEW MEDICATION, DIABETIC FOOT CARE, PATIENT VERBALIZED UNDERSTANDING. REMOVED 20 GAUGE CATHETER FROM LEFT FOREARM, TIP INTACT. REMOVED WRIST BAND, PATIENT AMBULATED WITH STEADY GAIT OUT OF HOSPITAL ACCOMPANIED BY HIS .
== END 2019-05-16 19:10 | disposition home or self-care (01) | DRG 720 ==
LOC: MED 00:19 → MTU 03:44
PROVIDERS: ADMIT General Practice; ATTEND General Practice
PROC: 0DB68ZX Excision of Stomach, Via Natural or Artificial Opening Endoscopic, Diagnostic (ICD-10-PCS; principal; 2019-05-16 11:15)
PROC: 0DBN8ZZ Excision of Sigmoid Colon, Via Natural or Artificial Opening Endoscopic (ICD-10-PCS; 2019-05-16 11:15)
DX: A41.9 Sepsis, unspecified organism (principal); N17.0 Acute kidney failure with tubular necrosis; E43 Unspecified severe protein-calorie malnutrition; I50.43 Acute on chronic combined systolic (congestive) and diastolic (congestive) heart failure; E11.22 Type 2 diabetes mellitus with diabetic chronic kidney disease; E83.39 Other disorders of phosphorus metabolism; K26.9 Duodenal ulcer, unspecified as acute or chronic, without hemorrhage or perforation; E86.0 Dehydration; N13.6 Pyonephrosis; E11.65 Type 2 diabetes mellitus with hyperglycemia; B96.20 Unspecified Escherichia coli [E. coli] as the cause of diseases classified elsewhere; E11.9 Type 2 diabetes mellitus without complications; E87.1 Hypo-osmolality and hyponatremia; I11.0 Hypertensive heart disease with heart failure; R31.9 Hematuria, unspecified; E87.6 Hypokalemia; Z68.35 Body mass index [BMI] 35.0-35.9, adult; K57.90 Diverticulosis of intestine, part unspecified, without perforation or abscess without bleeding; K64.9 Unspecified hemorrhoids; N40.0 Benign prostatic hyperplasia without lower urinary tract symptoms; E66.9 Obesity, unspecified; F17.210 Nicotine dependence, cigarettes, uncomplicated; I16.0 Hypertensive urgency; E05.90 Thyrotoxicosis, unspecified without thyrotoxic crisis or storm; E83.42 Hypomagnesemia; K52.9 Noninfective gastroenteritis and colitis, unspecified; R59.1 Generalized enlarged lymph nodes; K29.70 Gastritis, unspecified, without bleeding; N39.0 Urinary tract infection, site not specified; Z68.36 Body mass index [BMI] 36.0-36.9, adult
CPT/HCPCS: 36415; 45381; 71045; 71260; 74018; 76705; 80048; 80053; 80305; 81001; 82140; 82150; 82948; 83036; 83605; 83690; 83735; 83880; 84100; 84134; 84439; 84443; 84484; 85025; 85610; 85730; 86677; 87040; 87045; 87070; 87081; 87086; 87186; 88305; 89055; 92610; 93005; 93976; 96361; 96365; 96375; 99285; G0482; J0696; J1200; J1610; J1815; J1885; J2001; J2250; J2405; J2543; J2765; J3010; J3475; J3480; J3490; J7030; J7060; Q0092; Q9967